=== PATIENT | female | born 1960 | race Two or more races ===

== ENCOUNTER 2023-02-11 16:14 | Emergency (ER) | payer BC ==
[~2023-02-11] VITALS: Ht 157.5 cm; Wt 72.1 kg
--- NOTE | 2023-02-11 16:35 | NUR ---
PATIENT CAME WITH COMPLAINTS OF DIZZINESS AND VOMITTING.PLACED ON BED,CONNECT TO MONITOR.
--- NOTE | 2023-02-11 16:40 | NUR ---
DR VARMA AT BED SIDE.
--- NOTE | 2023-02-11 16:46 | NUR ---
PATIENT WENT TO RADIOLOGY.
[2023-02-11] MEDS ORDERED: diphenhydrAMINE HCL 50 MG/ML VIAL IV ONE (17:00)
[2023-02-11] MEDS ORDERED: ONDANSETRON HCL/PF 4 MG/2 ML VIAL IVP ONE (17:00)
[2023-02-11] MEDS ORDERED: MECLIZINE HCL 12.5 MG TABLET PO ONE (17:00)
[2023-02-11] MEDS ORDERED: IV NS 0.9% 1,000 ML BAG IV ONE (17:00)
--- NOTE | 2023-02-11 17:05 | NUR ---
blood collected and send to lab.
--- NOTE | 2023-02-11 17:05 | NUR ---
iv inserted on lt ra 20 g
[2023-02-11] MEDS ORDERED: ONDANSETRON HCL/PF 4 MG/2 ML VIAL ONE (17:07)
[2023-02-11] MEDS ORDERED: MECLIZINE HCL 25 MG TABLET ONE (17:07)
[2023-02-11] MEDS ORDERED: diphenhydrAMINE HCL 50 MG/ML VIAL ONE (17:10)
[2023-02-11 17:31] LABS: BASOPHILS % (AUTO) 0.6 % (0.0-2.0); EOSINOPHILS % (AUTO) 3.2 % (0.0-6.0); HEMATOCRIT 40 % (33-45); HEMOGLOBIN 13.2 g/dL (11.5-14.8); LYMPHOCYTES # (AUTO) 1.4 K/uL (0.8-4.8); LYMPHOCYTES % (AUTO) 21.7 % (20.0-44.0); MEAN CORPUSCULAR HGB CONC 33 g/dl (31.0-36.0); MEAN CORPUSCULAR VOLUME 83 fL (82-100); MONOCYTES # (AUTO) 0.3 K/uL (0.1-1.30); MONOCYTES % (AUTO) 4.7 % (2.0-12.0); NEUTROPHILS # (AUTO) 4.4 K/uL (1.8-8.9); NEUTROPHILS % (AUTO) 69.8 % (43.0-81.0); PLATELET COUNT (AUTO) 250 K/uL (150-450); RED BLOOD CELL COUNT(AUTO) 4.77 MIL/uL (4.0-5.2); WHITE BLOOD COUNT (AUTO) 6.3 K/uL (4.3-11.0)
[2023-02-11 17:42] LABS: CALCIUM, SERUM 9.4 mg/dL (8.5-10.1); CREATININE 0.6 mg/dL (0.6-1.3); POTASSIUM 4.6 mmol/L (3.5-5.1)
[2023-02-11 17:48] LABS: ALBUMIN 3.8 g/dL (3.4-5.0); BILIRUBIN,DIRECT 0.1 mg/dL (0.0-0.2); BILIRUBIN,TOTAL 0.4 mg/dL (0.2-1.0); TOTAL PROTEIN, SERUM 7.3 g/dL (6.4-8.2)
[2023-02-11] MEDS ORDERED: MECL-159 PO ×2 (18:06→18:07)
--- NOTE | 2023-02-11 18:15 | NUR ---
IV NS STARTED AT 1715 END TME [id number] LITER INFUSED.
--- NOTE | 2023-02-11 18:44 | NUR ---
SET UP TRANSPORT WITH [facility] TO PTS FACILITY. ETA 1944.
--- NOTE | 2023-02-11 18:49 | NUR ---
patient for discharge,informed ambulance people.take singnature from patient.explained to patient how to take medication .
--- NOTE | 2023-02-11 19:30 | NUR ---
PATIENT PROVIDE WITH ALL BLOOD AND RADIOLOGY REPORTS.
--- NOTE | 2023-02-11 19:33 | NUR ---
Discussed discharge plan with patient, verbalized agreement. APA 350 at bedside taking report and communicating with pt, per pt caregiver is waiting at home. l/m with brother ph. [phone], per pts request.
[2023-02-11 19:35] VITALS: BP 138/88; TEMP 98.2
== END 2023-02-11 19:37 | disposition home or self-care (01) ==
LOC: ER 16:16
DX: R42 Dizziness and giddiness (principal); E11.9 Type 2 diabetes mellitus without complications; F32.A Depression, unspecified
CPT/HCPCS: 99285; 96374; 70450; 96361; 96375; 93005; 85025; 80048; 80076; 36415; J8597; J1200; J2405; J7030

== ENCOUNTER 2023-05-06 09:00 | Inpatient (IN) | payer BC ==
[~2023-05-06] VITALS: Ht 160 cm; Wt 71.2 kg
[~2023-05-06 09:00] MED LIST: MECL-159 PO
[2023-05-06] MEDS ORDERED: KETOROLAC TROMETHAMINE INJ 30 MG/ML VIAL IV ONE (09:30)
[2023-05-06] MEDS ORDERED: MORPHINE SULFATE INJ 4 MG/ML DISP.SYRIN IV ONE (09:30)
[2023-05-06] MEDS ORDERED: KETOROLAC TROMETHAMINE INJ 30 MG/ML VIAL ONE (09:34)
[2023-05-06] MEDS ORDERED: MORPHINE SULFATE INJ 4 MG/ML DISP.SYRIN ONE (09:34)
[2023-05-06 09:48] LABS: BASOPHILS % (AUTO) 0.6 % (0.0-2.0); EOSINOPHILS # (AUTO) 0.3 K/uL (0.0-0.7); EOSINOPHILS % (AUTO) 3.8 % (0.0-6.0); HEMATOCRIT 39 % (33-45); HEMOGLOBIN 12.7 g/dL (11.5-14.8); LYMPHOCYTES # (AUTO) 1.4 K/uL (0.8-4.8); LYMPHOCYTES % (AUTO) 18.4 % (20.0-44.0); MEAN CORPUSCULAR HEMOGLOBIN 27 PG (26.0-33.0); MEAN CORPUSCULAR HGB CONC 33 g/dl (31.0-36.0); MEAN CORPUSCULAR VOLUME 84 fL (82-100); MONOCYTES # (AUTO) 0.6 K/uL (0.1-1.30); MONOCYTES % (AUTO) 8.1 % (2.0-12.0); NEUTROPHILS # (AUTO) 5.2 K/uL (1.8-8.9); NEUTROPHILS % (AUTO) 69.1 % (43.0-81.0); PLATELET COUNT (AUTO) 217 K/uL (150-450); RED BLOOD CELL COUNT(AUTO) 4.66 MIL/uL (4.0-5.2); RED CELL DISTRIBUTION WIDTH 13.9 % (11.5-15.0); WHITE BLOOD COUNT (AUTO) 7.5 K/uL (4.3-11.0)
[2023-05-06 09:59] LABS: INR 1.03 (0.91-1.10); PARTIAL THROMBOPLASTIN TIME 30.9 SEC (24.3-34.3); PROTHROMBIN TIME 10.8 SECS (9.2-11.1)
[2023-05-06 10:23] LABS: ALBUMIN 3.3 g/dL (3.4-5.0); BILIRUBIN,DIRECT 0.1 mg/dL (0.0-0.2); BILIRUBIN,TOTAL 0.3 mg/dL (0.2-1.0); CREATININE 0.6 mg/dL (0.6-1.3); POTASSIUM 4.7 mmol/L (3.5-5.1); TOTAL PROTEIN, SERUM 6.6 g/dL (6.4-8.2)
[2023-05-06] MEDS ORDERED: OLAN5TAB3 PO (10:41)
[2023-05-06] MEDS ORDERED: OXYB10TA30 PO (10:41)
[2023-05-06] MEDS ORDERED: TRIA80OI TP (10:41)
[2023-05-06] MEDS ORDERED: POLY17PO4 PO (10:41)
[2023-05-06] MEDS ORDERED: PROP20TA7 PO (10:41)
[2023-05-06] MEDS ORDERED: POLY15DR40 EACHEYE (10:41)
[2023-05-06] MEDS ORDERED: MECL-159 PO (10:41)
[2023-05-06] MEDS ORDERED: ONDA4TAB5 PO (10:41)
[2023-05-06 10:56] LABS: CALCIUM, SERUM 9.3 mg/dL (8.5-10.1)
[2023-05-06] MEDS ORDERED: ACETAMINOPHEN 325 MG TABLET PO PRN (20:30)
[2023-05-06] MEDS ORDERED: IV D5/0.45 NACL 1,000 ML IV PRN (20:30)
[2023-05-06] MEDS ORDERED: ONDANSETRON HCL/PF 4 MG/2 ML VIAL IVP PRN (20:30)
[2023-05-06] MEDS ORDERED: Z GUARD REMEDY 4 OZ OINT TP PRN (20:30)
[2023-05-06] MEDS: PANTOPRAZOLE 40 MG TABLET.DR PO SCH (21:38)
[2023-05-06] MEDS: OXYBUTYNIN CHLORIDE ER 5 MG TAB PO SCH (21:38)
[2023-05-06] MEDS: OLANZAPINE 5 MG TABLET PO SCH (21:38)
[2023-05-06] MEDS: ENOXAPARIN SODIUM 40 MG/0.4 ML DISP.SYRIN SQ SCH (21:39)
[2023-05-06 23:43] VITALS: BP 103/55; TEMP 98.1; O2SAT 96
[2023-05-07 07:09] LABS: BASOPHILS % (AUTO) 0.5 % (0.0-2.0); EOSINOPHILS # (AUTO) 0.2 K/uL (0.0-0.7); EOSINOPHILS % (AUTO) 4.5 % (0.0-6.0); HEMATOCRIT 33 % (33-45); HEMOGLOBIN 10.9 g/dL (11.5-14.8); LYMPHOCYTES # (AUTO) 1.7 K/uL (0.8-4.8); LYMPHOCYTES % (AUTO) 32.5 % (20.0-44.0); MEAN CORPUSCULAR HEMOGLOBIN 28 PG (26.0-33.0); MEAN CORPUSCULAR HGB CONC 33 g/dl (31.0-36.0); MEAN CORPUSCULAR VOLUME 83 fL (82-100); MONOCYTES # (AUTO) 0.6 K/uL (0.1-1.30); MONOCYTES % (AUTO) 12.1 % (2.0-12.0); NEUTROPHILS # (AUTO) 2.6 K/uL (1.8-8.9); NEUTROPHILS % (AUTO) 50.4 % (43.0-81.0); PLATELET COUNT (AUTO) 174 K/uL (150-450); RED BLOOD CELL COUNT(AUTO) 3.93 MIL/uL (4.0-5.2); RED CELL DISTRIBUTION WIDTH 13.7 % (11.5-15.0); WHITE BLOOD COUNT (AUTO) 5.1 K/uL (4.3-11.0)
[2023-05-07 07:18] LABS: CALCIUM, SERUM 8.5 mg/dL (8.5-10.1); CREATININE 0.6 mg/dL (0.6-1.3); MAGNESIUM 1.9 mg/dL (1.8-2.4); PHOSPHORUS 3.3 mg/dL (2.5-4.9); POTASSIUM 3.8 mmol/L (3.5-5.1)
[2023-05-07 08:00] VITALS: BP 104/67; TEMP 98.4; O2SAT 96
[2023-05-07 08:39] LABS: THYROID STIMULATING HORMONE 0.629 uIU/mL (0.358-3.74)
[2023-05-07] MEDS: PROPRANOLOL HCL 10 MG TABLET PO SCH (09:00)
[2023-05-07] MEDS: PANTOPRAZOLE 40 MG TABLET.DR PO SCH (10:43)
[2023-05-07] MEDS: MORPHINE SULFATE INJ 2 MG/ML DISP.SYRIN IV PRN ×2 (14:25→18:42)
[2023-05-07 16:00] VITALS: BP 110/63; TEMP 98.8; O2SAT 97
[2023-05-07 19:00] VITALS: BP 93/42; TEMP 97.9; O2SAT 97
[2023-05-07 20:00] VITALS: BP 93/72; TEMP 97.9; O2SAT 97
[2023-05-07] MEDS: ENOXAPARIN SODIUM 40 MG/0.4 ML DISP.SYRIN SQ SCH (20:24)
[2023-05-07 21:00] VITALS: BP 112/69
[2023-05-07] MEDS: OLANZAPINE 5 MG TABLET PO SCH (21:11)
[2023-05-07] MEDS: OXYBUTYNIN CHLORIDE ER 5 MG TAB PO SCH (21:11)
[2023-05-07] MEDS: MAGNESIUM HYDROXIDE 30 ML UDC PO PRN (21:49)
[2023-05-08 04:55] VITALS: BP 103/65; TEMP 98.1; O2SAT 98
[2023-05-08] MEDS: MORPHINE SULFATE INJ 2 MG/ML DISP.SYRIN IV PRN (05:32)
[2023-05-08] MEDS ORDERED: POLYMYXIN B SULFATE 500,000 UNITS ONE (05:34)
[2023-05-08] MEDS ORDERED: ANESTHESIA TRAY IN PYXIS 1 EA TRAY MC ONE ×2 (05:35→09:48)
[2023-05-08] MEDS ORDERED: BUPIVACAINE 0.25% 75 MG/30 ML VIAL ONE (05:35)
[2023-05-08 06:25] LABS: BASOPHILS % (AUTO) 0.4 % (0.0-2.0); EOSINOPHILS # (AUTO) 0.3 K/uL (0.0-0.7); EOSINOPHILS % (AUTO) 4.7 % (0.0-6.0); HEMATOCRIT 32 % (33-45); HEMOGLOBIN 10.7 g/dL (11.5-14.8); LYMPHOCYTES # (AUTO) 1.8 K/uL (0.8-4.8); LYMPHOCYTES % (AUTO) 32.6 % (20.0-44.0); MEAN CORPUSCULAR HEMOGLOBIN 28 PG (26.0-33.0); MEAN CORPUSCULAR HGB CONC 34 g/dl (31.0-36.0); MEAN CORPUSCULAR VOLUME 84 fL (82-100); MONOCYTES # (AUTO) 0.6 K/uL (0.1-1.30); MONOCYTES % (AUTO) 11.3 % (2.0-12.0); NEUTROPHILS # (AUTO) 2.9 K/uL (1.8-8.9); PLATELET COUNT (AUTO) 161 K/uL (150-450); RED CELL DISTRIBUTION WIDTH 13.9 % (11.5-15.0); WHITE BLOOD COUNT (AUTO) 5.6 K/uL (4.3-11.0)
[2023-05-08] MEDS ORDERED: FENTANYL PF 100MCG/2ML AMPUL ONE (06:37)
[2023-05-08] MEDS ORDERED: MIDAZOLAM HCL 2 MG/2ML VIAL ONE ×2 (06:38→06:46)
[2023-05-08] MEDS ORDERED: FAMOTIDINE/PF INJ 20 MG/2 ML VIAL IV ONE ×2 (06:38→06:46)
[2023-05-08] MEDS ORDERED: ROCURONIUM BROMIDE 50 MG/5 ML ONE (06:38)
[2023-05-08] MEDS ORDERED: ROPIVACAINE HCL 0.5% 5 MG/ML 30ML VIAL ONE (06:38)
[2023-05-08] MEDS ORDERED: FENTANYL PF 250MCG/5ML AMPUL ONE (06:45)
[2023-05-08 06:56] LABS: CALCIUM, SERUM 8.6 mg/dL (8.5-10.1); CREATININE 0.6 mg/dL (0.6-1.3); MAGNESIUM 2.2 mg/dL (1.8-2.4); PHOSPHORUS 3.1 mg/dL (2.5-4.9); POTASSIUM 4.2 mmol/L (3.5-5.1)
[2023-05-08] MEDS ORDERED: TRANEXAMIC ACID 1,000 MG/10 ML VIAL ONE (07:13)
[2023-05-08] MEDS: PANTOPRAZOLE 40 MG TABLET.DR PO SCH (07:30)
[2023-05-08] MEDS ORDERED: VANCOMYCIN 1 GM VIAL ONE (08:13)
[2023-05-08] MEDS ORDERED: HYDROMORPHONE INJ 2 MG/ML DISP.SYRIN ONE (08:32)
[2023-05-08] MEDS: PROPRANOLOL HCL 10 MG TABLET PO SCH (09:00)
[2023-05-08] MEDS ORDERED: HYDROCODONE/APAP 5/325MG TABLET PO PRN (11:30)
[2023-05-08 12:13] LABS: HEMOGLOBIN 10.3 g/dL (11.5-14.8)
[2023-05-08] MEDS: ANCEF 1 GM/50 ML D5W IV SCH ×4 (13:51→20:43)
[2023-05-08 20:35] VITALS: BP 104/72; TEMP 98.6; O2SAT 94
[2023-05-08] MEDS: OXYBUTYNIN CHLORIDE ER 5 MG TAB PO SCH (21:12)
[2023-05-08] MEDS: OLANZAPINE 5 MG TABLET PO SCH ×2 (21:12→22:32)
[2023-05-08] MEDS: ENOXAPARIN SODIUM 40 MG/0.4 ML DISP.SYRIN SQ SCH (21:14)
[2023-05-08] MEDS: MORPHINE SULFATE INJ 4 MG/ML DISP.SYRIN IV PRN (21:20)
[2023-05-08] MEDS: MAGNESIUM HYDROXIDE 30 ML UDC PO PRN (22:31)
[2023-05-09] MEDS: MORPHINE SULFATE INJ 4 MG/ML DISP.SYRIN IV PRN ×2 (05:00→17:13)
[2023-05-09 06:15] LABS: BASOPHILS % (AUTO) 0.4 % (0.0-2.0); EOSINOPHILS # (AUTO) 0.1 K/uL (0.0-0.7); EOSINOPHILS % (AUTO) 0.8 % (0.0-6.0); HEMATOCRIT 26 % (33-45); HEMOGLOBIN 8.5 g/dL (11.5-14.8); LYMPHOCYTES # (AUTO) 2.1 K/uL (0.8-4.8); LYMPHOCYTES % (AUTO) 25.8 % (20.0-44.0); MEAN CORPUSCULAR HEMOGLOBIN 28 PG (26.0-33.0); MEAN CORPUSCULAR HGB CONC 33 g/dl (31.0-36.0); MEAN CORPUSCULAR VOLUME 84 fL (82-100); MONOCYTES # (AUTO) 0.8 K/uL (0.1-1.30); MONOCYTES % (AUTO) 10.5 % (2.0-12.0); NEUTROPHILS % (AUTO) 62.5 % (43.0-81.0); PLATELET COUNT (AUTO) 180 K/uL (150-450); RED BLOOD CELL COUNT(AUTO) 3.07 MIL/uL (4.0-5.2); RED CELL DISTRIBUTION WIDTH 13.3 % (11.5-15.0)
[2023-05-09 06:45] LABS: CALCIUM, SERUM 8.3 mg/dL (8.5-10.1); CREATININE 0.5 mg/dL (0.6-1.3); MAGNESIUM 2.4 mg/dL (1.8-2.4); PHOSPHORUS 2.9 mg/dL (2.5-4.9); POTASSIUM 4.1 mmol/L (3.5-5.1)
[2023-05-09 07:30] VITALS: BP 92/63; TEMP 98.8; O2SAT 94
[2023-05-09] MEDS: PROPRANOLOL HCL 10 MG TABLET PO SCH (08:13)
[2023-05-09] MEDS: PANTOPRAZOLE 40 MG TABLET.DR PO SCH (08:13)
[2023-05-09] MEDS: SOD FERRIC GLUC 125 MG in IV NS 0.9% 100 ML IV SCH (13:58)
[2023-05-09 16:00] VITALS: BP 95/63; TEMP 98.4; O2SAT 97
[2023-05-09 20:00] VITALS: BP_SYST 92; BP_SYST 95; BP_DIAS 58; TEMP 99; O2SAT 93; O2SAT 95
[2023-05-09] MEDS: ENOXAPARIN SODIUM 40 MG/0.4 ML DISP.SYRIN SQ SCH (20:54)
[2023-05-09] MEDS: MUPIROCIN OINT 2% 22 GM TUBE NS SCH (20:55)
[2023-05-09] MEDS: OLANZAPINE 5 MG TABLET PO SCH (22:08)
[2023-05-09] MEDS: OXYBUTYNIN CHLORIDE ER 5 MG TAB PO SCH (22:08)
[2023-05-10] MEDS: MORPHINE SULFATE INJ 4 MG/ML DISP.SYRIN IV PRN ×3 (03:16→20:32)
[2023-05-10 07:19] LABS: BASOPHILS % (AUTO) 0.4 % (0.0-2.0); EOSINOPHILS # (AUTO) 0.3 K/uL (0.0-0.7); EOSINOPHILS % (AUTO) 4.4 % (0.0-6.0); HEMATOCRIT 23 % (33-45); HEMOGLOBIN 7.6 g/dL (11.5-14.8); LYMPHOCYTES # (AUTO) 2.1 K/uL (0.8-4.8); LYMPHOCYTES % (AUTO) 33.1 % (20.0-44.0); MEAN CORPUSCULAR HEMOGLOBIN 28 PG (26.0-33.0); MEAN CORPUSCULAR HGB CONC 33 g/dl (31.0-36.0); MEAN CORPUSCULAR VOLUME 85 fL (82-100); MONOCYTES # (AUTO) 0.6 K/uL (0.1-1.30); MONOCYTES % (AUTO) 9.8 % (2.0-12.0); NEUTROPHILS # (AUTO) 3.3 K/uL (1.8-8.9); NEUTROPHILS % (AUTO) 52.3 % (43.0-81.0); PLATELET COUNT (AUTO) 185 K/uL (150-450); RED BLOOD CELL COUNT(AUTO) 2.68 MIL/uL (4.0-5.2); WHITE BLOOD COUNT (AUTO) 6.3 K/uL (4.3-11.0)
[2023-05-10 07:30] LABS: ALBUMIN 2.3 g/dL (3.4-5.0); BILIRUBIN,TOTAL 0.3 mg/dL (0.2-1.0); CALCIUM, SERUM 8.1 mg/dL (8.5-10.1); CREATININE 0.5 mg/dL (0.6-1.3); POTASSIUM 3.9 mmol/L (3.5-5.1); TOTAL PROTEIN, SERUM 5.4 g/dL (6.4-8.2)
[2023-05-10] MEDS: PANTOPRAZOLE 40 MG TABLET.DR PO SCH (07:44)
[2023-05-10 08:00] VITALS: BP 98/61; TEMP 97.9; O2SAT 94
[2023-05-10] MEDS: MUPIROCIN OINT 2% 22 GM TUBE NS SCH ×2 (08:40→21:14)
[2023-05-10] MEDS: PROPRANOLOL HCL 10 MG TABLET PO SCH (09:00)
[2023-05-10] MEDS: SOD FERRIC GLUC 125 MG in IV NS 0.9% 100 ML IV SCH (13:57)
[2023-05-10 16:00] VITALS: BP 108/65; TEMP 98.2; O2SAT 96
[2023-05-10 20:00] VITALS: BP 105/64; TEMP 98.1; O2SAT 95
[2023-05-10] MEDS: OXYBUTYNIN CHLORIDE ER 5 MG TAB PO SCH (21:13)
[2023-05-10] MEDS: OLANZAPINE 5 MG TABLET PO SCH (21:13)
[2023-05-10] MEDS: ENOXAPARIN SODIUM 40 MG/0.4 ML DISP.SYRIN SQ SCH (21:14)
[2023-05-11 07:00] VITALS: BP 104/63; TEMP 98.4; O2SAT 94
[2023-05-11] MEDS: PANTOPRAZOLE 40 MG TABLET.DR PO SCH (07:37)
[2023-05-11] MEDS: PROPRANOLOL HCL 10 MG TABLET PO SCH (08:47)
[2023-05-11] MEDS: MUPIROCIN OINT 2% 22 GM TUBE NS SCH ×2 (09:07→21:13)
[2023-05-11] MEDS: SOD FERRIC GLUC 125 MG in IV NS 0.9% 100 ML IV SCH (14:12)
[2023-05-11 16:00] VITALS: BP 86/59; TEMP 98.4; O2SAT 94
[2023-05-11] MEDS: OLANZAPINE 5 MG TABLET PO SCH (21:13)
[2023-05-11] MEDS: OXYBUTYNIN CHLORIDE ER 5 MG TAB PO SCH (21:14)
[2023-05-11] MEDS: ENOXAPARIN SODIUM 40 MG/0.4 ML DISP.SYRIN SQ SCH (21:15)
[2023-05-12] MEDS: MORPHINE SULFATE INJ 4 MG/ML DISP.SYRIN IV PRN (05:35)
[2023-05-12 07:00] VITALS: BP 82/55; TEMP 98.4; O2SAT 96
[2023-05-12] MEDS: PANTOPRAZOLE 40 MG TABLET.DR PO SCH (08:11)
[2023-05-12 08:12] VITALS: BP 82/55
[2023-05-12] MEDS: MUPIROCIN OINT 2% 22 GM TUBE NS SCH (08:12)
[2023-05-12] MEDS: PROPRANOLOL HCL 10 MG TABLET PO SCH (08:12)
[2023-05-13] MEDS ORDERED: ENSURE ENLIVE 237 ML LIQUID (VANILLA) PO SCH (09:00)
== END 2023-05-12 12:25 | DRG 308 ==
LOC: ER 09:00 → MED 17:09
PROVIDERS: ADMIT Nurse Practitioner Acute Care; ATTEND Nurse Practitioner Acute Care
PROC: 0QS706Z Reposition Left Upper Femur with Intramedullary Internal Fixation Device, Open Approach (ICD-10-PCS; principal; 2023-05-08)
PROC: 0QP704Z Removal of Internal Fixation Device from Left Upper Femur, Open Approach (ICD-10-PCS; 2023-05-08)
DX: S72.142A Displaced intertrochanteric fracture of left femur, initial encounter for closed fracture (principal); E87.1 Hypo-osmolality and hyponatremia; Z96.698 Presence of other orthopedic joint implants; H54.7 Unspecified visual loss; H91.90 Unspecified hearing loss, unspecified ear; W18.30XA Fall on same level, unspecified, initial encounter; Y92.099 Unspecified place in other non-institutional residence as the place of occurrence of the external cause; Z98.890 Other specified postprocedural states; F32.A Depression, unspecified; Z79.899 Other long term (current) drug therapy; F41.9 Anxiety disorder, unspecified; I70.0 Atherosclerosis of aorta; Z86.69 Personal history of other diseases of the nervous system and sense organs; R42 Dizziness and giddiness; M35.01 Sjogren syndrome with keratoconjunctivitis
CPT/HCPCS: 36415; 71045-TC; 73020; 73502; 73552; 73700-TC; 80048-TC; 80053-TC; 80061-TC; 80076-TC; 82728-TC; 83540-TC; 83735-TC; 84100-TC; 84439-TC; 84443-TC; 85025-TC; 85027-TC; 85730-TC; 86850-TC; 87081-TC; 88300-TC; 93307-TC; 97110-TC; 97112-TC; 97116-TC; 97530-TC; A4223; A6209; C1713; G0378; J0690; J1100; J1170; J1650; J1885; J2250; J2270; J2370; J2405; J2704; J2765; J2795; J2916; J3010; J3370; J3490; J7030; J7060

== ENCOUNTER 2023-09-05 14:00 | Emergency (ER) | payer BC ==
[~2023-09-05] VITALS: Ht 162.6 cm; Wt 68.9 kg
[~2023-09-05 14:00] MED LIST changes: +OLAN5TAB3 PO; +ONDA4TAB5 PO; +OXYB10TA30 PO; +POLY15DR40 EACHEYE; +POLY17PO4 PO; +PROP20TA7 PO; +TRIA80OI TP
[2023-09-05] MEDS ORDERED: KETOROLAC TROMETHAMINE INJ 30 MG/ML VIAL IM ONE (15:00)
[2023-09-05] MEDS ORDERED: KETOROLAC TROMETHAMINE INJ 30 MG/ML VIAL ONE ×2 (15:34→15:48)
[2023-09-05] MEDS ORDERED: KETOROLAC TROMETHAMINE INJ 60 MG/2 ML VIAL IM ONE (16:00)
[2023-09-05 18:36] VITALS: BP 122/77; TEMP 98.4; O2SAT 100
== END 2023-09-05 18:36 | disposition home or self-care (01) ==
LOC: ER 14:07
DX: M25.552 Pain in left hip (principal); E11.9 Type 2 diabetes mellitus without complications
CPT/HCPCS: 99284; 96372 ×2; J1885 ×2